=== PATIENT | female | born 1975 | race Two or more races ===

== ENCOUNTER 2020-12-20 22:42 | Emergency (ER) | payer MEDICAID, OTHER ==
[~2020-12-20] VITALS: Ht 167.6 cm; Wt 54.4 kg
[2020-12-20 23:03] VITALS: BP 110/42
== END 2020-12-21 00:04 | disposition home or self-care (01) ==
LOC: ER 22:44
DX: R51.9 Headache, unspecified (principal); V49.9XXA Car occupant (driver) (passenger) injured in unspecified traffic accident, initial encounter; Y93.89 Activity, other specified; Y92.488 Other paved roadways as the place of occurrence of the external cause; Y99.8 Other external cause status
CPT/HCPCS: 70450